=== PATIENT | female | born 1985 | race Caucasian/White ===

== ENCOUNTER 2016-11-14 18:44 | Emergency (ER) | payer BC ==
[~2016-11-14] VITALS: Ht 162.6 cm; Wt 61.4 kg
[~2016-11-14 18:44] MED LIST: BENADRYL25 MG PO; DOCUSATE SODIU100 MG PO; ENDOCET 5-3251 EACH PO; IBUPROFEN800 MG PO; Motrin PO; PREFERA-OB P1 TABLET PO; Percocet 5/325,Endoc PO; TESSALON PERLE100 MG PO
[2016-11-14 19:29] LABS: HEMATOCRIT 39.2 % (36.0-46.0); MCH 27.4 PG (29.0-34.0); MCHC 32.9 G/DL (30.0-36.0); MCV 83.2 FL (83-99); MEAN PLAT.VOLUME 10.6 uM^3 (9.5-12.4); PLATELET COUNT 349 K/uL (156-360); RBC DIS.WIDTH-CV 13.7 % (11.8-14.6); RBC DIS.WIDTH-SD 40.4 % (39-53); RED BLOOD COUNT 4.71 M/uL (3.80-5.20); WHITE BLOOD COUNT 10.4 K/uL (4.1-10.2)
[2016-11-14 19:40] LABS: CHLORIDE 109 mEq/L (99-109); POTASSIUM 3.5 mEq/L (3.7-5.4); SODIUM 141 mEq/L (136-147)
[2016-11-14 19:42] LABS: GLUCOSE 108 mg/dL (70-99)
[2016-11-14 19:43] LABS: ANION GAP 10 MEQ/L (2-14)
[2016-11-14 19:45] LABS: GFR ESTIMATE (CALCULATED) > 59 mL/min/
[2016-11-14 19:46] LABS: UREA NITROGEN (BUN) 12 mg/dL (9-23)
[2016-11-14 19:49] LABS: TROP-I INTERPRETATION NEGATIVE; TROPONIN-I < 0.01 ng/mL (0.0-0.30)
[2016-11-14 23:10] LABS: D-DIMER ELISA < 0.15 mg/L FEU (< 0.57)
[2016-11-14 23:15] LABS: TROP-I INTERPRETATION NEGATIVE; TROPONIN-I < 0.01 ng/mL (0.0-0.30)
[2016-11-14 23:53] LABS: ADD MIUA? YES; BILIRUBIN NEGATIVE; BLOOD NEGATIVE; COLOR YELLOW ((YELLOW)); GLUCOSE (STRIP) NEGATIVE; KETONES 15; LEUKOCYTES TRACE; NITRITE NEGATIVE; PROTEIN (STRIP) NEGATIVE; SPECIFIC GRAVITY 1.022 (1.000-1.030); UROBILINOGEN 0.2 MG/DL (0.2-1.0)
[2016-11-15 00:10] LABS: AMORPHOUS PHOSPHATE CRYSTALS 2+; BACTERIA RARE; CASTS NONE SEEN /LPF; CRYSTALS PRESENT; EPITHELIAL CELLS RARE; MUCUS NONE SEEN; RED BLOOD CELLS 0-5 /HPF (0-5); UCUL ADDED? NO; WHITE BLOOD CELLS 0-5 /HPF (0-5)
[2016-11-15] MEDS ORDERED: MOTRIN600 MG PO (00:13)
[2016-11-15 01:10] VITALS: BP 103/65
== END 2016-11-15 01:22 | disposition home or self-care (01) ==
LOC: EME 18:44
PROVIDERS: Emergency Medicine
DX: R07.9 Chest pain, unspecified (principal)
CPT/HCPCS: 71020; 80048; 81003; 84484; 84702; 85027; 85379; 87086; 93005; 99281; 99284